=== PATIENT | male | born 1965 | race Caucasian/White ===

== ENCOUNTER → 2017-12-31 | Outpatient (CLI) | payer BC | LOC: COL.LAB 14:52 | DX: Z01.812 Encounter for preprocedural laboratory examination (principal); M25.852 Other specified joint disorders, left hip ==

== ENCOUNTER → 2018-05-14 | Outpatient (CLI) | payer BC | LOC: COL.LAB 10:54 | DX: Z01.812 Encounter for preprocedural laboratory examination (principal) ==